=== PATIENT | female | born 1945 | race Caucasian/White ===

== ENCOUNTER → 2016-11-05 | Outpatient (CLI) | payer OTHER ==
[~2016-11-05] MED LIST: NS 100 ML IV 100 ML IV ONE
[2016-11-05 08:39] LABS: CREATININE 0.96 mg/dL (0.55-1.02)
--- NOTE | 2016-11-05 10:42 | CT ---
CT OF THE ABDOMEN AND PELVIS WITH CONTRAST HISTORY: Right lower quadrant pain and nausea Comparison: None Technique: Multiple axial images of the abdomen and pelvis were obtained from the lung bases to the pubic symphy sis follow the administration of IV contrast. Dose reduction techniques including Automated Exposure Control (AEC) and adjustment of mA and kV were utlized. Findings: The heart is normal in size. There is no pericardial effusion. Lung bases are clear without focal con solidation, pleural effusion or pneumothorax. Liver and spleen are normal in size, enhancement characteristics and contour. No focal lesions. The p ortal vein is patent. No ductal dilitation. Gallbladder is present. No calcified gallstones or gallbl adder wall thickening. The pancreas is unremarkable. Adrenal glands are normal. Kidneys enhance symme trically without hydronephrosis or nephrolithiasis. No bowel obstruction or inflammation. Appendix not clearly identified however there is no evidence of acute appendicitis or significant right lower quadrant inflammation No abnormal appearing mesenteric or retroperitoneal lymph nodes. No free fluid or fluid collections. Diverticulosis without evidence of diverticulitis The bladder is normal in appearance. Status post hysterectomy. No free fluid or abnormal pelvic lymph nodes. No aggressive osseous lesions. Multilevel degenerative disc disease worst at L4-L5. IMPRESSION: 1. No source of patient's right lower quadrant pain is identified on this examination. Reported By:
== END ==
LOC: RAD 08:12
PROVIDERS: ATTEND Internal Medicine Gastroenterology
DX: R10.31 Right lower quadrant pain (principal); R11.0 Nausea
CPT/HCPCS: 36415; 74177; 82565; 84520; A4222